=== PATIENT | female | born 1990 | race Hispanic/Latino ===

== ENCOUNTER 2021-12-12 20:39 | Inpatient (IN) | payer MEDICAID ==
[~2021-12-12] VITALS: Ht 157.5 cm; Wt 74.8 kg
[2021-12-12] MEDS ORDERED: PROMETHAZINE HCL 25 MG/ML 1ML AMPULE IM PRN (21:00)
[2021-12-12] MEDS ORDERED: LACTATED RINGERS 1000ML 1,000 ML IV PRN (21:00)
[2021-12-12] MEDS ORDERED: LACTATED RINGERS 1000ML 1,000 ML IV SCH (21:00)
[2021-12-12] MEDS ORDERED: MEPERIDINE-PF 50 MG/ML SYG IVP PRN (21:00)
[2021-12-12 21:39] LABS: APPEARANCE,URINE Clear (CLEAR); BILIRUBIN,URINE Negative (NEGATIVE); COLOR,URINE Yellow (YELLOW); GLUCOSE, URINE (UA) TRACE mg/dL (NEGATIVE); KETONES,URINE Trace mg/dL (NEGATIVE); LEUKOCYTE ESTERASE ,URINE Trace (NEGATIVE); NITRATE,URINE Negative (NEGATIVE); OCCULT BLOOD,URINE Negative (NEGATIVE); PROTEIN,URINE Negative (NEGATIVE)
[2021-12-12 21:55] LABS: BACTERIA,URINE Few /HPF (None Seen); RBC,URINE 0-1 /HPF (0-1); SQUAMOUS EPITHELIAL CELL,UR Few /HPF (0-2)
[2021-12-12 22:15] LABS: HEMATOCRIT 32.9 % (36-48); MEAN CORPUSCULAR HGB CONC 33.1 g/dL (32.0-36.0); MEAN CORPUSCULAR VOLUME 78.3 fL (79-99); RED BLOOD CELL COUNT(AUTO) 4.2 MIL/uL (4.00-5.50); RED CELL DISTRIBUTION WIDTH 14.8 % (11.0-15.5); WHITE BLOOD COUNT (AUTO) 8.5 K/uL (4.8-10.8)
[2021-12-12 22:57] LABS: AMPHET/METH SCREEN,URINE NEGATIVE (NEGATIVE); BARBITURATE SCREEN, URINE NEGATIVE (NEGATIVE); BENZODIAZEPINES SCREEN,URINE NEGATIVE (NEGATIVE); CANNABINOID SCREEN,URINE NEGATIVE (NEGATIVE); COCAINE SCREEN,URINE NEGATIVE (NEGATIVE); OPIATE SCREEN,URINE NEGATIVE (NEGATIVE); PHENCYCLIDINE SCREEN,URINE NEGATIVE (NEGATIVE)
[2021-12-13 01:18] VITALS: BP 137/58
[2021-12-13] MEDS ORDERED: METH-387 PO (01:24)
[2021-12-13] MEDS ORDERED: PREN-196 PO (01:25)
[2021-12-13] MEDS ORDERED: OXYTOCIN-LR 20 UNITS/1000 ML 1,000 ML IV SCH (03:00)
[2021-12-13 08:24] LABS: RAPID PLASMA REAGIN NONREACTIVE (NONREACTIVE)
[2021-12-13] MEDS: OXYTOCIN-LR 20 UNITS/1000 ML 1,000 ML IV SCH ×2 (09:40→10:21)
[2021-12-13] MEDS ORDERED: LIDOCAINE HCL 400MG/20ML VIAL ONE (09:43)
[2021-12-13] MEDS ORDERED: WITCH HAZEL 1 PAD TP PRN (10:00)
[2021-12-13] MEDS ORDERED: LANOLIN 30GM OINTMENT TP PRN (10:00)
[2021-12-13] MEDS ORDERED: ACETAMINOPHEN WITH CODEINE 1 TAB TAB PO PRN (10:00)
[2021-12-13] MEDS ORDERED: ACETAMINOPHEN 325 MG TAB PO PRN (10:00)
[2021-12-13] MEDS ORDERED: BENZOCAINE/LANOLIN/ALOE VERA 60 ML AEROSOL TP PRN (10:00)
[2021-12-13] MEDS: IBUPROFEN 600 MG TABLET PO PRN (11:15)
[2021-12-13 11:45] VITALS: BP 122/71
[2021-12-13 16:33] VITALS: BP 111/72
[2021-12-13 19:28] VITALS: BP 108/63
[2021-12-13] MEDS: DOCUSATE SODIUM 100 MG CAP PO SCH (21:20)
[2021-12-13 23:43] VITALS: BP 112/77
[2021-12-14 04:14] VITALS: BP 100/57
[2021-12-14 06:38] LABS: HEMATOCRIT 30.4 % (36-48); MEAN CORPUSCULAR HEMOGLOBIN 25.5 pg (27.0-33.0); MEAN CORPUSCULAR HGB CONC 32.2 g/dL (32.0-36.0); RED BLOOD CELL COUNT(AUTO) 3.85 MIL/uL (4.00-5.50); RED CELL DISTRIBUTION WIDTH 15.3 % (11.0-15.5); WHITE BLOOD COUNT (AUTO) 9.3 K/uL (4.8-10.8)
[2021-12-14 07:25] VITALS: BP 123/76
[2021-12-14] MEDS: DOCUSATE SODIUM 100 MG CAP PO SCH (08:50)
[2021-12-14] MEDS: IBUPROFEN 600 MG TABLET PO PRN (08:51)
[2021-12-14 10:14] LABS: HEPATITIS Bs ANTIGEN SCREEN P Negative (Negative)
[2021-12-14 11:30] VITALS: BP 111/69
== END 2021-12-14 12:55 | disposition home or self-care (01) | DRG 560 ==
LOC: LDH 20:39 → WSH 12-13 11:43
PROVIDERS: ADMIT Obstetrics & Gynecology; ATTEND Obstetrics & Gynecology
PROC: 10E0XZZ Delivery of Products of Conception, External Approach (ICD-10-PCS; principal; 2021-12-13)
PROC: 0HQ9XZZ Repair Perineum Skin, External Approach (ICD-10-PCS; 2021-12-13)
DX: O99.284 Endocrine, nutritional and metabolic diseases complicating childbirth (principal); Z37.0 Single live birth; E05.90 Thyrotoxicosis, unspecified without thyrotoxic crisis or storm; O70.0 First degree perineal laceration during delivery; Z3A.38 38 weeks gestation of pregnancy
CPT/HCPCS: 36415; 80305; 81001; 85027; 86592; 86701; 86850; 86900; 86901; 87340; 87390; G0378; J2175; J2550; J2590; J3490